=== PATIENT | male | born 1990 | race Two or more races ===

== ENCOUNTER 2021-08-24 15:49 | Outpatient (REF) | payer SELFPAY ==
[2021-08-26 10:25] LABS: COVID-19 RT-PCR UVMMC Result Negative (Negative)
== END 2021-08-24 15:50 | disposition home or self-care (01) ==
LOC: LBN 15:49
PROVIDERS: PCP Specialist/Technologist Athletic Trainer; Visit Provider Family Medicine
DX: Z20.822 Contact with and (suspected) exposure to COVID-19 (principal); J32.9 Chronic sinusitis, unspecified
CPT/HCPCS: U0003

== ENCOUNTER 2021-09-13 15:46 | Outpatient (REF) | payer SELFPAY ==
[2021-09-14 18:58] LABS: COVID-19 RT-PCR UVMMC Result Negative (Negative)
== END 2021-09-13 15:47 | disposition home or self-care (01) ==
LOC: NCHCN 15:46
PROVIDERS: PCP Specialist/Technologist Athletic Trainer; Visit Provider Nurse Practitioner Family
DX: Z20.822 Contact with and (suspected) exposure to COVID-19 (principal)
CPT/HCPCS: U0003

== ENCOUNTER 2022-05-22 16:02 | Outpatient (REF) | payer BC, SELFPAY ==
[2022-05-22 16:38] LABS: Anion Gap 10.6 mmol/L (3-11); BUN 15 mg/dL (7-18); CO2 23.4 mmol/L (21.0-32.0); CREATININE 0.9 mg/dL (0.70-1.30); Calcium 9.2 mg/dL (8.5-10.1); Chloride 106 mmol/L (98-107); Glucose 101 mg/dL (74-106); Potassium 4.2 mmol/L (3.5-5.1); Sodium 140 mmol/L (136-145)
[2022-05-22 16:43] LABS: Hemoglobin A1C 5.5 % (<5.7)
== END 2022-05-22 16:03 | disposition home or self-care (01) ==
LOC: NCHCN 16:02
PROVIDERS: PCP Specialist/Technologist Athletic Trainer; Visit Provider Nurse Practitioner Family
DX: Z00.00 Encounter for general adult medical examination without abnormal findings (principal)
CPT/HCPCS: 80048; 83036

== ENCOUNTER 2022-07-12 13:08 | Emergency (ER) | payer BC, SELFPAY ==
[2022-07-12 13:19] VITALS: BP 131/88; PULSE 75; RESP 18; TEMP 36.7; O2SAT 97
--- NOTE | 2022-07-12 13:54 | ED.GENADUL_ITS ---
Discharge Plan Disposition Patient Disposition: HOME Condition: Stable Discharge Details Clinical Impression: Acute otalgia, URI (upper respiratory infection) Primary Care Provider: Idalia Lamb ED Provider: Mitchel Nettles Home Meds and New Rx's Prescriptions: New amoxicillin 875 mg tablet 875 mg PO Q12H 7 Days Qty: 14 0RF Continued fexofenadine 60 mg tablet 60 mg PO DAILY Label Comments: 07/06/22- pt unsure of dose omeprazole 20 mg capsule,delayed release(DR/EC) 20 mg PO DAILY acetaminophen [Tylenol] 325 MG tablet 650 mg PO Q6H PRN PRN (Reason: Pain) Qty: 120 2RF Held ibuprofen 600 MG tablet 600 mg PO TID PRN PRN (Reason: Pain) Qty: 90 2RF Hold Instructions: As instructed by urology Discharge Instructions Instructions: Upper Respiratory Infection (ED), Earache (ED) Additional Instructions: At this time I feel that your ear pain is secondary to your upper respiratory tract infection. You may continue to use [id number] medications as discussed for discomfort and symptoms. You have been given a prescription for antibiotics but I recommend waiting for the least the next 24 to 48 hours to see if using acetaminophen resolve your symptoms as I am not convinced that this is a bacterial ear infection and again is more related to your viral infection. If you begin the antibiotics and you do not see any benefit in the next 48 hours or you have significant worsening of symptoms feel free to follow-up with your primary care provider or return to the emergency department. Referrals: Idalia Lamb [Primary Care Provider] - (As needed for reassessment if not improving) Discharge Data Discharge Date/Time-TO BE ENTERED AT DEPARTURE: 07/12/22 14:06 Medical Decision Making Patient presenting to the emergency department for chief complaint of left ear pain. Patient reports that 3 days ago he began having cold-like symptoms which were improved this morning but started having some left ear pain. Patient states it is more moderate in nature but due to having surgery on Sunday he wanted to be assessed before then. Patient denies fever chills, shortness of breath. He does state that he has tested negative for COVID and multiple other family members in the home with similar symptoms who have also all tested nega tive for COVID. Physical exam shows left TM that is bulging and partially erythematous but no purulence, and exam is otherwise unremarkable. I do feel that patient is stable enough to take [id number] analgesia for discomfort for the next 24 to 48 hours to see if this resolves symptoms prior to starting antibiotics given that patient just charted having ear pain this morning. Patient was agreeable to this plan of care but I did give patient pocket prescription for amoxicillin if patient has worsening symptoms. After discussion of diagnosis and plan of care patient has no further needs, questions, or concerns and states clear understanding to return to the emergency department for any worsening symptoms. This documentation was generated using [employer] dictation system, please disregard any oddities of phrase or misspellings. HPI General Mode of arrival: ambulatory . Date/Time Provider Initiated Documentation: 07/12/22 13:27 . Limitations to Documentation: no limitations . Information obtained by: patient . History of Present Illness 31 year old M presents to the emergency department with the chief complaint of Left earache, cold symptoms, described as moderate, with intensity rated at 5. Quality is described as aching, and is localized to the left (ear). Patient reports no radiation. Patient started experiencing this hour(s) (3) and it has been constant. No relieving factors improve symptom(s), No exacerbating factors reported . Patient did receive the following treatments prior to arrival, none Related Data Home Medications Medication Instructions Recorded Confirmed acetaminophen 325 mg tablet 650 mg PO Q6H PRN PRN Pain #120 10/25/17 07/12/22 (Tylenol) tabs ibuprofen 600 mg tablet 600 mg PO TID PRN PRN Pain #90 tabs 10/25/17 07/12/22 omeprazole 20 mg capsule,delayed 20 mg PO DAILY 06/20/22 07/12/22 release fexofenadine 60 mg tablet 60 mg PO DAILY 07/06/22 07/12/22 amoxicillin 875 mg tablet 875 mg PO Q12H 7 days #14 tabs 07/12/22 Previous Rx's Medication Instructions Recorded acetaminophen 325 mg tablet 650 mg PO Q6H PRN PRN Pain #120 10/25/17 (Tylenol) tabs ibuprofen 600 mg tablet 600 mg PO TID PRN PRN Pain #90 tabs 10/25/17 amoxicillin 875 mg tablet 875 mg PO Q12H 7 days #14 tabs 07/12/22 Allergies Allergy/AdvReac Type Severity Reaction Status Date / Time No Known Allergies Allergy Unverified 07/12/22 13:24 General Stated Complaint: EarProblem MICKEY: 5 Review of Systems Constitutional Constitutional: Denies chills, Denies fever(s), Denies headache(s) and Denies poor appetite ENT Ears, Nose, Mouth, and Throat: Reports as per HPI, Denies ear discharge, Reports otalgia, Denies facial pain, Denies headache(s), Reports nasal congestion, Reports nasal discharge, Denies neck pain and Denies sore throat Cardiovascular Cardiovascular: Denies chest pain and Denies dyspnea Respiratory Respiratory: Reports cough and Denies dyspnea Gastrointestinal Gastrointestinal: Denies abdominal pain, Denies diarrhea, Denies nausea and Denies vomiting Musculoskeletal Musculoskeletal: Denies neck pain Integumentary/Breasts Skin/Breast: Denies rash Neurologic Neurologic: Denies headache(s) PFSH All Active Problems Acute otalgia (Acute) URI (upper respiratory infection) (Acute) GERD (gastroesophageal reflux disease) (Chronic) Back pain (Acute) Tobacco abuse (Acute) Abdominal pain (Acute) Groin pain (Acute) Testicular pain (Acute) Sleep disturbance (Acute) Obesity (Chronic) Varicocele (Acute) Social History Smoking/Tobacco Use Status: Current every day Tobacco Type: cigarettes Smoking risk assessment performed?: Yes Alcohol Intake: current Alcohol Intake frequency: a few times a month Alcohol type: beer, wine and hard liquor Drug use: Occasionally Substance use type: marijuana Current gender identity: male Do you feel safe at home: Yes Do you feel safe in your relationship?: Yes Exam Const General: cooperative, comfortable and no acute distress Orientation: alert and awake [facility] Head: normal to inspection, normocephalic and atraumatic Ears: hearing grossly normal bilaterally, external ears normal, TM normal on the right, mastoids normal, no periauricular adenopathy and TM abnormal bulging on the left and erythematous on the left; not bullous, not dull and not with effusion General nose exam: external nose normal Face and sinus: no erythema Mouth: oral mucosae normal, no drooling, no muffled voice and no trismus Throat: posterior oropharynx normal Neck Neck: normal visual inspection, no lymphadenopathy, no meningeal signs, trachea midline and supple Resp Effort & Inspection: normal respiratory effort and able to speak in complete sentences Skin General skin exam: no rashes or lesions noted and dry skin (warm) Neuro General: patient alert, patient awake, patient oriented x3, gait normal and moves all extremities Cognition: normal cognition Speech: speech normal Course Vital Signs Vital signs: Vital Signs Temperature 36.7 C 07/12/22 13:19 Pulse 75 07/12/22 13:19 Respiratory Rate 18 07/12/22 13:19 Blood Pressure 131/88 07/12/22 13:19 Pulse Oximetry 97 07/12/22 13:19 Temperature 36.7 C 07/12/22 13:19 Temperature Source Temporal Artery Scan 07/12/22 13:19 Pulse 75 07/12/22 13:19 Respiratory Rate 18 07/12/22 13:19 Respiratory Effort Non-Labored 07/12/22 13:22 Blood Pressure 131/88 07/12/22 13:19 Blood Pressure Position Sitting 07/12/22 13:19 Pulse Oximetry 97 07/12/22 13:19 Oxygen Delivery Method Room Air 07/12/22 13:19 Oxygen Flow Rate 0 07/12/22 13:19 Pain Level 8 07/12/22 13:19 PAWSS Have you Been Recently Intoxicated or Drunk Within the Last 30 days?: No Have you Ever Experienced Previous Episodes of Alcohol Withdrawal?: No Have you ever Experienced Withdrawal Seizures?: No Have you ever Experienced Delirium Tremens(DT)s?: No Have you ever undergone Alcohol Rehabilitation Treatment (i.e, inpt ot outpatient treatment programs)?: No Have you ever Experienced Blackouts?: No Have you ever Combined Alcohol with other Downers within the last 90 days?: No Have you ever Combined Alcohol with any other Substance of Abuse during the last 90 days?: No Positive Blood Alcohol level on Presentation? [PCS.BAL]: No Evidence of Increased Autonomic Activity (i.e. HR>120, tremor, sweating, agitation, nausea)?: No Result: 0
== END 2022-07-12 14:06 | disposition home or self-care (01) ==
PROVIDERS: Emergency Provider Nurse Practitioner Family; PCP Nurse Practitioner Family
DX: J06.9 Acute upper respiratory infection, unspecified; F17.210 Nicotine dependence, cigarettes, uncomplicated
CPT/HCPCS: 99283; 99284

== ENCOUNTER 2022-07-31 07:02 | Day surgery (SDC) | payer BC, SELFPAY ==
[2022-07-31] VITALS (9 sets, daily range): BP systolic 113–139; BP diastolic 57–85; PULSE 68–87; RESP 10–33; TEMP 36.1–36.7; O2SAT 97–99; BMI 34.9
--- NOTE | 2022-07-31 06:14 | ANES.PREOP_ITS ---
General Info Date of Service Date Performed: 07/31/22 Height: 5 ft 8 in Weight: 104.326 kg Body Mass Index (BMI): 34.9 Surgical Procedure: Operation Date: 07/31/22 07:40 Proposed Procedure Side Surgeon p Varicocelectomy Left Raul Go MD s Vasectomy Bilateral Raul Go MD Meds Allergies and Home Medications Allergies Allergy/AdvReac Type Severity Reaction Status Date / Time No Known Allergies Allergy Unverified 07/28/22 12:31 Home Medication Medication Instructions Recorded acetaminophen 325 mg tablet 650 mg PO Q6H PRN PRN Pain #120 10/25/17 (Tylenol) tabs ibuprofen 600 mg tablet 600 mg PO TID PRN PRN Pain #90 tabs 10/25/17 omeprazole 20 mg capsule,delayed 20 mg PO DAILY 06/20/22 release fexofenadine 60 mg tablet 60 mg PO DAILY 07/06/22 Current Visit Medications: Current Medications Generic Name Dose Route Start Last Admin Trade Name Freq PRN Reason Stop Dose Admin Ringer's Solution 1,000 mls @ 80 mls/hr 07/31/22 06:00 IV 08/27/22 23:59 INFUSION CHRIS Cefazolin Sodium/Dextrose 2 gm in 50 mls @ 100 mls/hr 07/31/22 06:00 Ancef Duplex IVPB 07/31/22 16:00 PREOP CHRIS IV Miscellaneous Supplies 1 each 07/31/22 06:00 Iv Access IV 08/27/22 23:59 DIRECTED CHRIS Sodium Chloride 0 ml 07/31/22 06:00 Normal Saline Flush 10 Ml Syr IV 08/27/22 23:59 PRN PRN Sodium Chloride 0 ml 07/31/22 06:00 Normal Saline 10 Ml Vial IJ 08/27/22 23:59 DIRECTED PRN Sterile Water 0 ml 07/31/22 06:00 Water,Injection,Sterile 10 Ml Vial IJ 08/27/22 23:59 DIRECTED PRN PFSH Active Problems Active Problems: Problem Status Onset Code Acute otalgia H92.09 URI (upper respiratory infection) J06.9 GERD (gastroesophageal reflux disease) K21.9 Back pain M54.9 Tobacco abuse Z72.0 Abdominal pain R10.9 Groin pain R10.30 Testicular pain N50.819 Sleep disturbance G47.9 Obesity E66.9 Varicocele I86.1 Medical History Medical History (Updated 07/31/22 @ 07:29 by Raul Go MD) Hand fracture, left Surgical History Surgical History (Updated 07/31/22 @ 07:26 by Savana Rey RN) Hx of hernia repair Tobacco Smoking/Tobacco Use Status: Current every day Tobacco Type: cigarettes Alcohol Alcohol Intake: current Alcohol intake frequency: a few times a month Alcohol type: beer, wine and hard liquor Substance Use Substance use: Occasionally Substance use type: marijuana Vital Signs and Lab Results Vital Signs Most Recent Vital Signs in EMR: Temp Pulse Resp BP Pulse Ox 36.2 C L 87 16 127/79 97 07/31/22 07:17 07/31/22 07:17 07/31/22 07:17 07/31/22 07:17 07/31/22 07:17 Lab Results Blood Type / Crossmatch: No Data to Display Complete Blood Count: No Data to Display Complete Metabolic Panel: No Data to Display Liver Function Panel: No Data to Display Coagulation Panel: No Data to Display Cardiac Panel: No Data to Display Arterial Blood Gas: No Data to Display Venous Blood Gas: No Data to Display Pancreas Panel: No Data to Display Thyroid Panel: No Data to Display Infectious Disease: No Data to Display Blood Cultures: No Data to Display Toxicology Panel: No Data to Display Anesthesia Assessment and Plan Anesthesia History Personal History: No History of Anesthesia Complications Family History: No Family History of Anesthesia Complications Exercise Tolerance Exercise Tolerance: Metabolic Equivalents>4 Cardiac & Pulmonary Exam Cardiac Exam: Normal S1/S2 Heart Sounds Pulmonary Exam: Clear Bilateral Breath Sounds Implantable Cardiac Device Does patient have a Pacemaker or an ICD?: No Airway Exam Known Difficult Airway: No Mallampati Class: 3 Mouth Opening: Narrow (< 3cm) Thyromental Distance: Greater than 3 cm Neck Range of Motion: Full ROM Neck Circumference: Thick Teeth Condition: Normal Dentition ASA Classification ASA Score: ASA 2 Emergency Case?: No NPO Status NPO Status: NPO Clears >2 hours, Solids >8 hours Anesthesia Plan Resuscitation Status: Full Code Anesthesia Technique: General Anesthesia Airway Planned: LMA Monitors Used: Standard Monitors Preoperative Comments:: 31 yo male for left varicelectomy, and vasectomy. Sig PMHx: GERD (omeprazole, well controlled), smoker (daily tobacco, occ can nabis), occ EtOH, pna 2.5 weeks ago - doing well. Previous Anes: LMA 4, states that he remembers his finger being pined, anes record reviewed (eyes taped/LMA) - will use EEG monitor.
--- NOTE | 2022-07-31 07:19 | HPE_ITS ---
Date of service: 07/31/22 Time of Service: 07:19 Assessment and Plan Assessment and plan (1) Varicocele: Status: Acute (2) Testicular pain: Status: Acute (3) Encounter for vasectomy: Status: Acute Assessment and plan: We will plan a left varicocelectomy and bilateral vasectomy. We should be able to do the left sided vasectomy through our varicocelectomy incision. We will need a second scrotal opening for the right sided vasectomy. History of Present Illness History of Present Illness Chief Complaint: Left varicocele Narrative: This is a 31-year-old gentleman who is referred by his primary care providers at [facility]. Fritz has a history of an undescended left testis.? He underwent orchiopexy as a child. He comes in now with a 3-month history of left sided scrotal, groin and abdominal pain.? Pain first started when he was lifting a cinder block and felt a pop up in the abdominal area.? The abdominal discomfort improved in a few days with the use of ibuprofen, but the groin and scrotal discomfort has continued. The intensity of the discomfort varies from day-to-day.? The pain seems worse after his work shift is over and did end of the work week.? He does notice that his single alcoholic beverage helps improve the pain. He is not aware of any external skin changes of the scrotum or groin.? He has 2 children and is not interested in additional pregnancies.? In fact, he is interested in having a vasectomy. He has no voiding difficulties such as dysuria or gross hematuria. He has no family history of urologic malignancy. He is a smoker.? He tells me that he tends to require more anesthetic than expected. Review of Systems Narrative: No fevers or chills No vision change or dysphasia No diabetes or thyroid Had URI @ 2 weeks ago - no symptoms now. No shortness of breath, cough or hemoptysis No chest pain or palpitations Hx GERD. No nausea, vomiting, hepatitis, ulcers, jaundice No seizures, strokes or peripheral neuropathy No bleeding disorders or anemia No gout PFSH All Active Problems (Updated 07/31/22 @ 07:29 by Raul Go MD) Encounter for vasectomy (Acute) Varicocele (Acute) Obesity (Chronic) Sleep disturbance (Acute) Testicular pain (Acute) Groin pain (Acute) Abdominal pain (Acute) Tobacco abuse (Acute) Back pain (Acute) GERD (gastroesophageal reflux disease) (Chronic) Acute otalgia (Acute) URI (upper respiratory infection) (Acute) Medical History (Updated 07/31/22 @ 07:29 by Raul Go MD) Hand fracture, left Surgical History (Updated 07/31/22 @ 07:26 by Savana Rey RN) Hx of hernia repair Social History Smoking/Tobacco Use Status: Current every day Tobacco Type: cigarettes Smoking risk assessment performed?: Yes Alcohol Intake: current Alcohol Intake frequency: a few times a month Alcohol type: beer, wine and hard liquor Drug use: Occasionally Substance use type: marijuana Current gender identity: male Do you feel safe at home: Yes Do you feel safe in your relationship?: Yes Meds Allergies and Home Medications Allergies Allergy/AdvReac Type Severity Reaction Status Date / Time No Known Allergies Allergy Unverified 07/28/22 12:31 Home Medications Medication Instructions Recorded Confirmed Type acetaminophen 325 mg tablet 650 mg PO Q6H PRN PRN Pain #120 10/25/17 07/31/22 Rx (Tylenol) tabs ibuprofen 600 mg tablet 600 mg PO TID PRN PRN Pain #90 tabs 10/25/17 07/31/22 Rx omeprazole 20 mg capsule,delayed 20 mg PO DAILY 06/20/22 07/31/22 History release fexofenadine 60 mg tablet 60 mg PO DAILY 07/06/22 07/31/22 History Exam Const General: cooperative Neck Neck: supple Resp Effort & Inspection: normal respiratory effort Auscultation: clear to auscultation bilaterally Cardio Rate: regular rate Rhythm: regular rhythm GI Inspection: normal to inspection Palpation: soft Neuro General: patient alert, patient awake and patient oriented x3
[2022-07-31] MEDS: Lactated Ringers 1,000 ML 80 ML IV (07:50)
[2022-07-31] MEDS: ceFAZolin 2 GM/50 ML BAG IVPB (07:58)
[2022-07-31] MEDS: Bupivacaine 0.25% Pres-Free 30 ML VIAL (08:24)
--- NOTE | 2022-07-31 09:16 | W.PM.DSUDISC ---
Discharge Plan Disposition Patient Disposition: HOME Condition: Good Discharge Details Reason For Visit: vasectomy Attending Provider: Raul Go Primary Care Provider: Idalia Lamb Home Meds and New Rx's Prescriptions: New ketorolac 10 mg tablet 10 mg PO TID PRN (Reason: pain) 5 Days Qty: 15 0RF Rx Instructions: may take with tylenol but do not take NSAIDS such as Ibuprofen No Action fexofenadine 60 mg tablet 60 mg PO DAILY Label Comments: 07/06/22- pt unsure of dose omeprazole 20 mg capsule,delayed release(DR/EC) 20 mg PO DAILY acetaminophen [Tylenol] 325 MG tablet 650 mg PO Q6H PRN PRN (Reason: Pain) Qty: 120 2RF ibuprofen 600 MG tablet 600 mg PO TID PRN PRN (Reason: Pain) Qty: 90 2RF Hold Instructions: As instructed by urology Discharge Instructions Additional Instructions: no lifting over 10 pounds for 2 weeks followup appt in my office 1 to 2 weeks OK to shower ice pack to scrotum (bag of frozen peas works well) for 48 hours Activity:: no lifting over 10 pounds Remove Dressings/Wound Care:: 24 hours Shower/Bathe:: 24 hours Diet:: As Tolerated Discharge Orders Discharge Orders: Discharge Order (Routine); Ordered 07/31/22 Ordered By: Raul Go DS: Diagnosis Discharge Diagnosis (1) Varicocele: Status: Acute (2) Testicular pain: Status: Acute (3) Encounter for vasectomy: Status: Acute
--- NOTE | 2022-07-31 09:24 | ROE_ITS ---
Date of service: 07/31/22 Time of Service: 09:24 Operative Note Operative Note DATE OF PROCEDURE: 07/31/22 PRE-OP DIAGNOSIS: 1. Left varicocele 2. Elective sterilization POST-OP DIAGNOSIS: same PROCEDURE: 1. Left varicocele 2. Bilateral vasectomy SURGEON: Raul Go ANESTHESIA TYPE: Local By Surgeon and General LMA/ETT Refer to Anesthesia Record ESTIMATED BLOOD LOSS: 20 PATHOLOGY: none sent COMPLICATIONS: None Patient was transported to: PACU Patient's condition: stable Implants: none Indications: This is a 31-year-old gentleman who has a history of left scrotal and groin discomfort. On evaluation, he has a palpable left varicocele which seems to be the source of his pain. He presents for varicocelectomy. He is also interested in having a vasectomy. He and his partner not interested in additional pregnancies. He has consented for vasectomy at the same procedure Findings: Varicocele Procedure Description: Patient was brought to the operating room on 07/31/2022. After successful i nduction of general anesthesia, he was placed in the supine position. He was given a dose of preoperative IV antibiotics. The patient's lower abdomen and genitalia were then prepped and draped steri elizabeth. We made a left inguinal incision and extended the incision down until the aponeurosis of the external oblique was identified. The external oblique was opened in the direction of its fibers and the spermatic cord was then identified. The cord was isolated and a Camryn drain was placed around the cord. A rather large lipoma of the cord was identified. The lipoma was dissected free using sharp and blunt dissection. The lipoma was removed. We were then able to skeletonize the cord and visualize multiple distended veins. Each of these veins was isolated using a right angle and divided between 2-0 silk ties. Once all veins were addressed, we isolated the vas deferens. We dissected the vas free from its surrounding tissues and excised a 2 cm section of vas. Each of the cut ends were then cauterized using a Bovie. The cord was replaced back beneath the external oblique aponeurosis. The aponeurosis was reapproximated using [id number] 2-0 Vicryl sutures. The subcutaneous tissue was reapproximated using 3-0 Vicryl. The skin was closed with a subcuticular 4-0 Vicryl suture. We then addressed the right vas deferens through a scrotal approach. The vas was isolated up against the scrotal skin. The skin was opened using a scalpel free technique. The vas was then grasped in a ring forceps and dissected free from its surrounding tissue. A 2 cm section of vas was excised. Each cut end of the vas deferens was then cauterized and the more proximal end of the vas was buried back beneath the adventitia using simple interrupted 3-0 chromic suture. Once hemostasis had been assured, the skin was closed with Dermabond. The patient tolerated this procedure well with no complications.
[2022-07-31] MEDS: HYDROmorphone 2 MG/ML SYR IVP (10:13)
[2022-07-31] MEDS: Normal Saline 10 ML VIAL IJ (10:13)
--- NOTE | 2022-07-31 10:43 | W.ANESPOSTOP ---
Postoperative Evaluation Date, Time and Location Date Performed: 07/31/22 Time Performed: 10:15 Patient Location: PACU Vital Signs Most Recent Imported Vital Signs: Most Recent Vital Signs Temp Pulse Resp BP Pulse Ox 36.4 C L 73 10 L 128/85 98 07/31/22 10:20 07/31/22 10:20 07/31/22 10:20 07/31/22 10:20 07/31/22 10:20 Pain Score Most Recent Pain Score: Most Recent Pain Score Pain Level 5 07/31/22 10:20 Assessment Mental Status: Awake (Alert & Oriented to Patient Baseline) Airway and Respiratory Function: Patent airway with normal (patient baseline) respiratory exam Cardiovascular Function: Hemodynamically Stable Hydration Status: Adequately Hydrated Nausea & Vomiting: No Nausea or Vomiting Pain: Pain is tolerable per patient Peripheral Nerve Block: Patient did not receive a nerve block
== END 2022-07-31 11:43 | disposition home or self-care (01) ==
PROVIDERS: PCP Nurse Practitioner Family; Visit Provider Urology
PROC: (CPT 55530; principal; 2022-07-31 07:30)
PROC: (CPT 55250; 2022-07-31 07:30)
DX: Z30.2 Encounter for sterilization (principal); I86.1 Scrotal varices; D17.6 Benign lipomatous neoplasm of spermatic cord; N50.819 Testicular pain, unspecified
CPT/HCPCS: 55530; 55520; 55250; J0131; J0690; J1100; J1170; J1885; J2405; J2704

== ENCOUNTER 2022-08-04 08:12 | Emergency (ER) | payer BC, SELFPAY ==
[2022-08-04 08:20] VITALS: BP 134/79; PULSE 117; RESP 18; TEMP 36.3; O2SAT 98
--- NOTE | 2022-08-04 08:45 | DI.RAD_ITS ---
Exam(s) XR ABDOMEN FLAT UPRIGHT EXAM: XR ABDOMEN FLAT UPRIGHT CLINICAL HISTORY: s/p sugery, no bm. TECHNIQUE: 2D digital imaging was performed. COMPARISON: CR ABD FLAT UPRIGHT PA CHEST from 11/23/2010 FINDINGS: 3 views Bowel gas pattern is nonspecific. There are air-filled nondilated small bowel loops as well as some air in the colon. There is no bowel obstruction or free air. There are 2 similar appearing calcific densities in the lower left pelvis which are possibly renal calculi but have more the appearance of undigested pills. There are no obvious calcifications over the kidneys nor along course of the upper -mid ureters. Visualized lung bases are clear. IMPRESSION: No bowel obstruction or free air. Two calcific densities in the pelvis as described above. These measure approximately 10 x 5 millimet ers. Although these may represent calculi in the left ureter/bladder, the appearance is more of undi gested pills. Correlation history recommended. DATA REPOSITORY: RADIATION DOSE DELIVERED:
[2022-08-04 09:16] VITALS: RESP 20
--- NOTE | 2022-08-04 10:13 | ED.GENADUL_ITS ---
Discharge Plan Disposition Patient Disposition: HOME Condition: Stable Discharge Details Clinical Impression: Abdominal pain Primary Care Provider: Idalia Lamb ED Provider: Hayley Betts Home Meds and New Rx's Prescriptions: Continued fexofenadine 60 mg tablet 60 mg PO DAILY Label Comments: 07/06/22- pt unsure of dose omeprazole 20 mg capsule,delayed release(DR/EC) 20 mg PO DAILY acetaminophen [Tylenol] 325 MG tablet 650 mg PO Q6H PRN PRN (Reason: Pain) Qty: 120 2RF ibuprofen 600 MG tablet 600 mg PO TID PRN PRN (Reason: Pain) Qty: 90 2RF Hold Instructions: As instructed by urology Discharge Instructions Instructions: Abdominal Pain (ED) Additional Instructions: Take MiraLAX or Colace daily for the next week Follow-up with Dr. Go Return earlier should you have new or worsening complaints Referrals: Idalia Lamb [Primary Care Provider] - Discharge Data Discharge Date/Time-TO BE ENTERED AT DEPARTURE: 08/04/22 10:31 Medical Decision Making Patient reports resolution of pain after receiving, he is requesting discharge home, be placed on MiraLAX or Colace at the patient's discretion Return precautions discussed and patient expressed understanding, discharged home in stable condition with stable vitals HPI General Date/Time Provider Initiated Documentation: 08/04/22 08:16 . HPI Narrative: This 31-year-old male presents status post varicocelectomy and vasectomy performed on Sunday. Presents secondary to rectal pain in the presence of likely constipation per patient. States he has not had a bowel movement in the past 3 days. States that she does not have surgery Related Data Home Medications Medication Instructions Recorded Confirmed acetaminophen 325 mg tablet 650 mg PO Q6H PRN PRN Pain #120 10/25/17 07/31/22 (Tylenol) tabs ibuprofen 600 mg tablet 600 mg PO TID PRN PRN Pain #90 tabs 10/25/17 07/31/22 omeprazole 20 mg capsule,delayed 20 mg PO DAILY 06/20/22 07/31/22 release fexofenadine 60 mg tablet 60 mg PO DAILY 07/06/22 07/31/22 Previous Rx's Medication Instructions Recorded acetaminophen 325 mg tablet 650 mg PO Q6H PRN PRN Pain #120 10/25/17 (Tylenol) tabs ibuprofen 600 mg tablet 600 mg PO TID PRN PRN Pain #90 tabs 10/25/17 Allergies Allergy/AdvReac Type Severity Reaction Status Date / Time No Known Allergies Allergy Unverified 07/28/22 12:31 General Stated Complaint: GenMedical MICKEY: 3 Review of Systems All systems reviewed & are unremarkable except as noted in HPI and below PFSH All Active Problems (Updated 08/04/22 @ 10:17 by WILVER Laughlin) Abdominal pain (Acute) Encounter for vasectomy (Acute) Varicocele (Acute) Obesity (Chronic) Sleep disturbance (Acute) Testicular pain (Acute) Groin pain (Acute) Abdominal pain (Acute) Tobacco abuse (Acute) Back pain (Acute) GERD (gastroesophageal reflux disease) (Chronic) Acute otalgia (Acute) URI (upper respiratory infection) (Acute) Medical History (Updated 08/04/22 @ 10:17 by WILVER Laughlin) Hand fracture, left Surgical History (Updated 07/31/22 @ 07:26 by Savana Rey RN) Hx of hernia repair Social History Smoking/Tobacco Use Status: Current every day Tobacco Type: cigarettes Smoking risk assessment performed?: Yes Alcohol Intake: current Alcohol Intake frequency: a few times a month Alcohol type: beer, wine and hard liquor Drug use: Occasionally Substance use type: marijuana Current gender identity: male Do you feel safe at home: Yes Do you feel safe in your relationship?: Yes Exam Const General: cooperative and comfortable Eyes Sclera: sclerae normal Resp Effort & Inspection: normal respiratory effort Auscultation: clear to auscultation bilaterally Cardio Rate: regular rate GI Inspection: normal to inspection Other: no stool in rectal vault Skin General skin exam: no rashes or lesions noted Neuro General: patient alert and patient oriented x3 Course Vital Signs Vital signs: Vital Signs Temperature 36.3 C L 08/04/22 08:20 Pulse 117 H 08/04/22 08:20 Respiratory Rate 18 08/04/22 08:20 Blood Pressure 134/79 08/04/22 08:20 Pulse Oximetry 98 08/04/22 08:20 Temperature 36.3 C L 08/04/22 08:20 Temperature Source Temporal Artery Scan 08/04/22 08:20 Pulse 117 H 08/04/22 08:20 Respiratory Rate 20 08/04/22 09:16 Respiratory Effort Non-Labored 08/04/22 09:16 Respiratory Depth Normal 08/04/22 09:16 Respiratory Pattern Normal 08/04/22 09:16 Blood Pressure 134/79 08/04/22 08:20 Blood Pressure Position Sitting 08/04/22 08:20 Pulse Oximetry 98 08/04/22 08:20 Oxygen Delivery Method Room Air 08/04/22 08:20 Oxygen Flow Rate 0 08/04/22 08:20 Pain Level 9 08/04/22 08:30 PAWSS Have you Been Recently Intoxicated or Drunk Within the Last 30 days?: No Have you Ever Experienced Previous Episodes of Alcohol Withdrawal?: No Have you ever Experienced Withdrawal Seizures?: No Have you ever Experienced Delirium Tremens(DT)s?: No Have you ever undergone Alcohol Rehabilitation Treatment (i.e, inpt ot outpatient treatment programs)?: No Have you ever Experienced Blackouts?: No Have you ever Combined Alcohol with other Downers within the last 90 days?: No Have you ever Combined Alcohol with any other Substance of Abuse during the last 90 days?: No Positive Blood Alcohol level on Presentation? [PCS.BAL]: No Evidence of Increased Autonomic Activity (i.e. HR>120, tremor, sweating, agitation, nausea)?: No Result: 0
[2022-08-04 10:32] VITALS: BP 131/87; PULSE 109; RESP 16; O2SAT 97
== END 2022-08-04 10:31 | disposition home or self-care (01) ==
PROVIDERS: Emergency Provider Physician Assistant; PCP Nurse Practitioner Family
DX: R10.9 Unspecified abdominal pain (principal)
CPT/HCPCS: 99283; 74019; 99282

== ENCOUNTER 2023-10-26 23:48 | Emergency (ER) | payer BC, SELFPAY ==
[2023-10-26 23:55] VITALS: BP 145/93; PULSE 133; RESP 18; TEMP 36.9; O2SAT 95
[2023-10-27 00:02] VITALS: BP 145/93; PULSE 133; RESP 18; TEMP 36.9; O2SAT 95
--- NOTE | 2023-10-27 00:07 | ED.GENADUL_ITS ---
Discharge Plan Disposition Patient Disposition: Home Condition: Good Discharge Details Clinical Impression: Left lower lobe pneumonia Primary Care Provider: Idalia Lamb ED Provider: Melvin Harmon Home Meds and New Rx's Prescriptions: New benzonatate 100 mg capsule 100 mg PO TID Qty: 30 0RF doxycycline hyclate 100 mg tablet 100 mg PO BID Qty: 20 0RF No Action fexofenadine 60 mg tablet 60 mg PO DAILY Patient Comments: 07/06/22- pt unsure of dose omeprazole 20 mg capsule,delayed release(DR/EC) 20 mg PO DAILY acetaminophen [Tylenol] 325 MG tablet 650 mg PO Q6H PRN PRN (Reason: Pain) Qty: 120 2RF ibuprofen 600 MG tablet 600 mg PO TID PRN PRN (Reason: Pain) Qty: 90 2RF Hold Instructions: As instructed by urology Discharge Instructions Instructions: Pneumonia (ED) Additional Instructions: At this time you have evidence of left lower lobe pneumonia. Please take the antibiotic doxycycline as prescribed. A prescription has been sent to your pharmacy. Please avoid any significant dairy products or calcium supplements while on this medication as they can bind to the medication and make it less effective. Please make sure to take the medication with food otherwise it can cause nausea and notable vomiting. Please take the Symbicort inhaler, 2 puffs every 12 hours while you are on the antibiotic. Please take the benzonatate to help with the cough. If you notice any worsening of your symptoms, or any new symptoms such as vomiting, diarrhea, fever, chills, shortness of breath, chest pain, numbness, weakness, or fainting , please return immediately to the emergency department for reevaluation. Please follow up with your primary care provider as soon as possible for reassessment and reevaluation. As always, it was a pleasure participating in your medical care today. Referrals: Idalia Lamb [Primary Care Provider] - Medical Decision Making 32-year-old male with a past medical history of GERD, tobacco abuse, presents today for evaluation of cough. Patient states that it has been present for the last 3 weeks. It started with a mild upper respiratory symptoms, and then continued. He states that he has been coughing so hard that occasionally he will have an episode of vomiting. He states he feels slightly tired and fatigued and achy, but otherwise feels fine and functional. He denies any headache or neck pain. He denies any chest pain. He denies any hemoptysis. Minimal yellow productive sputum. He denies numbness tingling or weakness. No other complaints at this time. No other modifying factors. No history of blood clots. No recent long trips surgeries or procedures. Exam demonstrates relatively well-appearing male, he is cheerful and interactive. No evidence of lethargy. Mild tachycardia. No murmur. No hypotension. Lung sounds are slightly diminished, no iris crackles. Bedside ultrasound was performed and shows evidence of consolidation and B-lines in the left lower lung warren. Questionable atelectasis in the right lateral lung field. Concern for pneumonia. Symptoms and history appear inconsistent with PE or myocarditis. With evidence of pneumonia, I do feel that this is the current cause of his persistent cough. Patient's oxygenation is stable. Do recommend smoking cessation. I do feel that the patient would benefit from antibacterial treatment. Will give a prescription for doxycycline and a small bottle here to go. Will give a Symbicort inhaler for home use as well, 2 puffs every 12 hours. Will give Tessalon Perles for home use. We did offer IV fluids for rehydration as he does have dry mucous membranes and mild to moderate tachycardia. Patient has declined IV fluids at this time. He states that he will go home and continue to hydrate well. Patient otherwise appears stable. He will be discharged home with a prescription for doxycycline Symbicort and Tessalon Perles. Discussed red flags for which to return. I have extensively reviewed the treatment plan and discharge instructions with the patient. I have addressed all patient concerns at this time. The patient was made aware of what symptoms to monitor for that would warrant a return to the emergency department. Discussed the plan with the patient, they demonstrate verbal understanding and agreement with our assessment and plan at this time. The documentation in this chart was dictated using [employer] dictation software. Please excuse any dictation errors. HPI General Date/Time Provider Initiated Documentation: 10/26/23 23:51 . HPI Narrative: 32-year-old male with a past medical history of GERD, tobacco abuse, presents today for evaluation of cough. Patient states that it has been present for the last 3 weeks. It started with a mild upper respiratory symptoms, and then continued. He states that he has been coughing so hard that occasionally he will have an episode of vomiting. He states he feels slightly tired and fatigued and achy, but otherwise feels fine and functional. He denies any headache or neck pain. He denies any chest pain. He denies any hemoptysis. Minimal yellow productive sputum. He denies numbness tingling or weakness. No other complaints at this time. No other modifying factors. No history of blood clots. No recent long trips surgeries or procedures. Related Data Home Medications Medication Instructions Recorded Confirmed acetaminophen 325 mg tablet 650 mg (2 x 325 mg) PO Q6H PRN PRN 10/25/17 04/04/23 (Tylenol) Pain #120 tabs ibuprofen 600 mg tablet 600 mg PO TID PRN PRN Pain #90 tabs 10/25/17 04/04/23 omeprazole 20 mg capsule,delayed 20 mg PO DAILY 06/20/22 04/04/23 release fexofenadine 60 mg tablet 60 mg PO DAILY 07/06/22 04/04/23 benzonatate 100 mg capsule 100 mg PO TID #30 caps 10/27/23 doxycycline hyclate 100 mg tablet 100 mg PO BID #20 tabs 10/27/23 Previous Rx's Medication Instructions Recorded acetaminophen 325 mg tablet 650 mg (2 x 325 mg) PO Q6H PRN PRN 10/25/17 (Tylenol) Pain #120 tabs ibuprofen 600 mg tablet 600 mg PO TID PRN PRN Pain #90 tabs 10/25/17 benzonatate 100 mg capsule 100 mg PO TID #30 caps 10/27/23 doxycycline hyclate 100 mg tablet 100 mg PO BID #20 tabs 10/27/23 Allergies Allergy/AdvReac Type Severity Reaction Status Date / Time No Known Allergies Allergy Unverified 04/02/23 11:04 General Stated Complaint: RespSymp MICKEY: 3 Review of Systems All systems reviewed & are unremarkable except as noted in HPI and below PFSH All Active Problems Left lower lobe pneumonia (Acute) Encounter for vasectomy (Acute) Varicocele (Acute) Obesity (Chronic) Sleep disturbance (Acute) Testicular pain (Acute) Groin pain (Acute) Abdominal pain (Acute) Tobacco abuse (Acute) Back pain (Acute) GERD (gastroesophageal reflux disease) (Chronic) Medical History Hand fracture, left Surgical History Hx of hernia repair Social History Smoking/Tobacco Use Status: Current every day Tobacco Type: cigarettes Smoking risk assessment performed?: Yes Alcohol Intake: current Alcohol Intake frequency: a few times a month Alcohol type: beer, wine and hard liquor Drug use: Occasionally Substance use type: marijuana Current gender identity: male Do you feel safe at home: Yes Do you feel safe in your relationship?: Yes Exam Narrative Exam Narrative: 1.Const: Well-nourished, Well-developed, appearing stated age 2.Eyes: PERRL, no conjunctival injection, and symmetrical lids. 3.ENT: Atraumatic external nose and ears. Dry MM. Neck: Symmetric, trachea midline, No thyromegaly. 4.CVS: +S1/S2, No murmurs or gallops. Peripheral pulses 2+ and equal in all extremities. Brisk capillary refill in all extremities. 5.RESP: Slightly diminished breath sounds. No significant wheezes rales or rhonchi. 6.GI: Soft, Nontender/Nondistended, No hepatosplenomegaly. No guarding or rebound. 7.MSK: Normocephalic/Atraumatic, Extremities w/o deformity or ttp No cyanosis or clubbing, Normal movement of all extremities 8.Skin: Warm, Dry. No rashes or lesions. 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 Sensation grossly intact, no focal neurologic deficits. 10.Psych: (AAO) x3. Appropriate mood and affect Course Vital Signs Vital signs: Vital Signs Temperature 36.9 C 10/26/23 23:55 Pulse 133 H 10/26/23 23:55 Respiratory Rate 18 10/26/23 23:55 Blood Pressure 145/93 H 10/26/23 23:55 Pulse Oximetry 95 10/26/23 23:55 Temperature 36.9 C 10/27/23 00:02 Temperature Source Temporal Artery Scan 10/27/23 00:02 Pulse 133 H 10/27/23 00:02 Respiratory Rate 18 10/27/23 00:02 Respiratory Effort Normal, Non-Labored 10/27/23 00:00 Respiratory Depth Normal 10/27/23 00:00 Blood Pressure 145/93 H 10/27/23 00:02 Blood Pressure Position Sitting 10/27/23 00:02 Pulse Oximetry 95 10/27/23 00:02 Oxygen Delivery Method Room Air 10/27/23 00:02 Oxygen Flow Rate 0 10/26/23 23:55 Pain Level 0 10/27/23 00:02 POCUS Exam (ED) Limited Thoracic Lung Exam DATE OF EXAM: 10/27/23 TIME OF EXAM: 00:22 PROVIDER THAT PERFORMED THE STUDY: Melvin Harmon IS THIS A REPEAT EXAM DURING THIS ENCOUNTER: No REASON FOR EXAM: Pneumonia VISUALIZED STRUCTURES: right lateral, left lateral, right posterior and left posterior PERTINENT FINDINGS/IMPRESSION: B-lines/left side and Pneumonia Exam complete
[2023-10-27] MEDS: Doxycycline Hyclate 100 MG, 2 CAPS/BTL PO (00:15)
[2023-10-27] MEDS: Budesonide/Formoterol 160/4.5 6 GM 60 PUFF INH IH (00:31)
== END 2023-10-27 00:25 | disposition home or self-care (01) ==
LOC: ER 10-27 00:42
PROVIDERS: Emergency Provider Student in an Organized Health Care Education/Training Program; PCP Nurse Practitioner Family
DX: J18.9 Pneumonia, unspecified organism (principal); R50.9 Fever, unspecified; R07.0 Pain in throat
CPT/HCPCS: 76604; 99283

== ENCOUNTER 2023-10-28 22:49 | Emergency (ER) | payer BC, SELFPAY ==
[2023-10-28] VITALS (14 sets, daily range): BP systolic 86–147; BP diastolic 53–86; PULSE 94–107; RESP 12–30; TEMP 37.2; O2SAT 94–97
--- NOTE | 2023-10-28 23:00 | DI.RAD_ITS ---
Exam(s) XR PORTABLE CHEST AP EXAM: XR PORTABLE CHEST AP CLINICAL HISTORY: cough, r/o pneumonia TECHNIQUE: 2D digital imaging was performed. COMPARISON: CR CHEST 2 VIEWS PA,LAT from 08/07/2017 FINDINGS: LUNGS: Clear. No pleural abnormality seen. HEART: Normal size. AORTA: Normal diameter. BONES: Unremarkable for age. Soft tissues: Unremarkable. IMPRESSION: No acute findings. DATA REPOSITORY: RADIATION DOSE DELIVERED:
[2023-10-28] MEDS: Normal Saline 1,000 ML 1000 ML IV (23:26)
[2023-10-28 23:38] LABS: Abs Immature Grans 0.03 10^3/uL (0.0-0.06); Absolute Basophil Count 0.03 10^3/uL (0.0-0.2); Absolute Monocyte Count 1.29 10^3/uL (0.1-0.8); Absolute Neutrophil Count 8.47 10^3/uL (1.2-6.7); Basophils % 0.3; HCT 42.7 % (40.0-50.0); HGB 14.9 g/dL (13.5-17.5); Immature Grans % 0.3; Lymphocytes % 10.6; MCH 32.1 pg (27.0-33.0); MCHC 34.9 % (32.0-36.0); MCV 92 fL (80-95); MPV 9.4 fL (8.0-11.0); Monocytes % 11.7; Neutrophils % 77.1; Platelet Count 194 10^3/uL (130-400); RBC 4.64 10^6/uL (4.36-5.78); RDW 12.6 % (11.8-14.1); RDW-SD 42.7 fL; WBC 10.99 10^3/uL (4.4-10.8)
[2023-10-28 23:39] LABS: Absolute Lymphocyte Count 1.16 10^3/uL (1.2-3.4); BE (Venous) -3 mmol/L (-2-3); HCO3 (Venous) 21 mmol/L (23-28); O2 Sat (Venous) 82 %; TCO2 (Venous) 19 mmol/L (24-29); pCO2 (Venous) 31 mmHg (41-51); pH (Venous) 7.44 (7.31-7.41); pO2 (Venous) 42 mmHg
[2023-10-28 23:55] LABS: ALT 22 U/L (16-63); AST 17 U/L (15-37); Albumin 3.5 g/dL (3.4-5.0); Alkaline Phosphatase 55 U/L (46-116); Anion Gap 11.1 mmol/L (3-11); BUN 11 mg/dL (7-18); Bilirubin, Total 0.8 mg/dL (0.2-1.0); CO2 23.9 mmol/L (21.0-32.0); Calcium 8.3 mg/dL (8.5-10.1); Chloride 102 mmol/L (98-107); Estimated GFR 103.19 (mL/min/1.73m2); Glucose 123 mg/dL (74-106); Potassium 3.6 mmol/L (3.5-5.1); Sodium 137 mmol/L (136-145); Total Protein 7.7 g/dL (6.4-8.2)
--- NOTE | 2023-10-28 23:55 | DI.VRAD_ITS ---
PROCEDURE INFORMATION: Exam: XR Chest Exam date and time: 10/28/2023 11:36 PM Age: 32 years old Clinical indication: Patient HX: Cough. R/O pneumonia TECHNIQUE: Imaging protocol: Radiologic exam of the chest. Views: 1 view. Total images: 1 COMPARISON: CR CHEST 2 VIEWS PA,LAT 08/07/2017 8:40 AM FINDINGS: Lungs: Lungs appear clear. No visible consolidation. No pulmonary masses. Pulmonary vascularity is normal. Pleural spaces: No pleural effusion or pneumothorax. Heart/Mediastinum: Heart size is normal. Bones/joints: No acute osseous abnormalities. IMPRESSION: No acute cardiopulmonary disease. Dictated and Authenticated by: Jael Chairez MD. Ordering:BRAEDEN Charles MD
[2023-10-29] VITALS: PULSE 95; RESP 18; O2SAT 97
[2023-10-29] LABS: Troponin I < 50 ng/L (<or=60)
[2023-10-29 00:01] VITALS: BP 113/58; PULSE 94; PULSE 95; RESP 17; O2SAT 96
[2023-10-29 00:10] VITALS: PULSE 93; RESP 22; O2SAT 97
--- NOTE | 2023-10-29 00:13 | ED.GENADUL_ITS ---
Discharge Plan Disposition Patient Disposition: Home Condition: Good Discharge Details Clinical Impression: Pneumonia, Dehydration Primary Care Provider: Idalia Lamb ED Provider: Melvin Harmon Home Meds and New Rx's Prescriptions: No Action fexofenadine 60 mg tablet 60 mg PO DAILY Patient Comments: 07/06/22- pt unsure of dose omeprazole 20 mg capsule,delayed release(DR/EC) 20 mg PO DAILY benzonatate 100 mg capsule 100 mg PO TID Qty: 30 0RF doxycycline hyclate 100 mg tablet 100 mg PO BID Qty: 20 0RF acetaminophen [Tylenol] 325 MG tablet 650 mg PO Q6H PRN PRN (Reason: Pain) Qty: 120 2RF ibuprofen 600 MG tablet 600 mg PO TID PRN PRN (Reason: Pain) Qty: 90 2RF Hold Instructions: As instructed by urology Discharge Instructions Instructions: Dehydration (ED), Pneumonia (ED) Additional Instructions: At this time your pneumonia has improved on your chest x-ray. You have been rehydrated with 1500 mL. Please continue to drink plenty of fluids at home. Please rest. Please continue to take the antibiotic as directed. If you notice any worsening of your symptoms, or any new symptoms such as vomiting, diarrhea, fever, chills, shortness of breath, chest pain, numbness, weakness, or fainting , please return immediately to the emergency department for reevaluation. Please follow up with your primary care provider as soon as possible for reassessment and reevaluation. As always, it was a pleasure participating in your medical care today. Referrals: Idalia Lamb [Primary Care Provider] - Medical Decision Making 32-year-old male presents today for lightheadedness. Patient was seen and assessed here 2 days ago, bedside ultrasound at that time showed evidence of mild left-sided consolidation and pneumonia. At that time he did appear mildly dehydrated, and had mild tachycardia. He was offered IV fluids at that time, bu t declined. He was started on doxycycline and discharged home. Since then his cough has been improving while on the antibiotic. He denies any shortness of breath or significant chest pain. However he has gotten slightly lightheaded. He states that initially he was doing well to keep up with the fluids however over the last 24 hours he has not drunk much at all. He felt slightly weak and lightheaded throughout the day, called the ambulance this evening and was brought in for further assessment. EMS did notice mild tachycardia. No hypoxemia. He was given 250 cc bolus of normal saline and brought in. Patient denies any other complaints at this time. Denies any fever or chills. Denies any vomiting or diarrhea. Exam demonstrates mild dry mucous membranes, clear lung sounds good oxygenation. Patient states that he already feels better after the 250 cc bolus from EMS. Will get an x-ray to evaluate for worsening pneumonia, rehydrate with an additional liter of normal saline get a laboratory workup. We will monitor closely and reassess. Symptoms appear clinically consistent at this time with dehydration. Symptoms appear inconsistent with PE, dissection, or ACS. 12:30 AM Laboratory workup has returned, EKG benign, rhythm shows no evidence of STEMI or interval abnormality. COVID flu and RSV are negative, troponin normal, no significant white count. Renal function stable. Chest x-ray negative for significant process. On reassessment after fluids the patient feels much better. Heart rate has normalized. He feels well and would like to go home. Discussed red flags for which to return. I have extensively reviewed the treatment plan and discharge instructions with the patient. I have addressed all patient concerns at this time. The patient was made aware of what symptoms to monitor for that would warrant a return to the emergency department. Discussed the plan with the patient, they demonstrate verbal understanding and agreement with our assessment and plan at this time. The documentation in this chart was dictated using sMedio dictation software. Please excuse any dictation errors. FINDINGS: Lungs: Lungs appear clear. No visible consolidation. No pulmonary masses. Pulmonary vascularity is normal. Pleural spaces: No pleural effusion or pneumothorax. Heart/Mediastinum: Heart size is normal. Bones/joints: No acute osseous abnormalities. IMPRESSION: No acute cardiopulmonary disease. Thank you for allowing us to participate in the care of your patient. Dictated and Authenticated by: Jael Chairez MD 10/28/2023 11:55 PM Eastern Time ([place] & [place]) HPI General Date/Time Provider Initiated Documentation: 10/28/23 23:01 . HPI Narrative: 32-year-old male presents today for lightheadedness. Patient was seen and assessed here 2 days ago, bedside ultrasound at that time showed evidence of mild left-sided consolidation and pneumonia. At that time he did appear mildly dehydrated, and had mild tachycardia. He was offered IV fluids at that time, but declined. He was started on doxycycline and discharged home. Since then his cough has been improving while on the antibiotic. He denies any shortness of breath or significant chest pain. However he has gotten slightly lightheaded. He states that initially he was doing well to keep up with the fluids however over the last 24 hours he has not drunk much at all. He felt slightly weak and lightheaded throughout the day, called the ambulance this evening and was brought in for further assessment. EMS did notice mild tachycardia. No hypoxemia. He was given 250 cc bolus of normal saline and brought in. Patient denies any other complaints at this time. Denies any fever or chills. Denies any vomiting or diarrhea. Related Data Home Medications Medication Instructions Recorded Confirmed acetaminophen 325 mg tablet 650 mg (2 x 325 mg) PO Q6H PRN PRN 10/25/17 10/28/23 (Tylenol) Pain #120 tabs ibuprofen 600 mg tablet 600 mg PO TID PRN PRN Pain #90 tabs 10/25/17 10/28/23 omeprazole 20 mg capsule,delayed 20 mg PO DAILY 06/20/22 10/28/23 release fexofenadine 60 mg tablet 60 mg PO DAILY 07/06/22 10/28/23 benzonatate 100 mg capsule 100 mg PO TID #30 caps 10/27/23 10/28/23 doxycycline hyclate 100 mg tablet 100 mg PO BID #20 tabs 10/27/23 10/28/23 Previous Rx's Medication Instructions Recorded acetaminophen 325 mg tablet 650 mg (2 x 325 mg) PO Q6H PRN PRN 10/25/17 (Tylenol) Pain #120 tabs ibuprofen 600 mg tablet 600 mg PO TID PRN PRN Pain #90 tabs 10/25/17 benzonatate 100 mg capsule 100 mg PO TID #30 caps 10/27/23 doxycycline hyclate 100 mg tablet 100 mg PO BID #20 tabs 10/27/23 Allergies Allergy/AdvReac Type Severity Reaction Status Date / Time No Known Allergies Allergy Unverified 10/28/23 23:05 General Stated Complaint: RespSymp MICKEY: 3 Review of Systems All systems reviewed & are unremarkable except as noted in HPI and below PFSH All Active Problems Dehydration (Acute) Pneumonia (Acute) Left lower lobe pneumonia (Acute) Encounter for vasectomy (Acute) Varicocele (Acute) Obesity (Chronic) Sleep disturbance (Acute) Testicular pain (Acute) Groin pain (Acute) Abdominal pain (Acute) Tobacco abuse (Acute) Back pain (Acute) GERD (gastroesophageal reflux disease) (Chronic) Medical History Hand fracture, left Surgical History Hx of hernia repair Social History Smoking/Tobacco Use Status: Current every day Tobacco Type: cigarettes Smoking risk assessment performed?: Yes Alcohol Intake: current Alcohol Intake frequency: a few times a month Alcohol type: beer, wine and hard liquor Drug use: Occasionally Substance use type: marijuana Housing: house Current gender identity: male Do you feel safe at home: Yes Do you feel safe in your relationship?: Yes Exam Narrative Exam Narrative: 1.Const: Well-nourished, Well-developed, appearing stated age 2.Eyes: PERRL, no conjunctival injection, and symmetrical lids. 3.ENT: Atraumatic external nose and ears. Dry MM. Neck: Symmetric, trachea midline, No thyromegaly. 4.CVS: +S1/S2, No murmurs or gallops. Peripheral pulses 2+ and equal in all extremities. Brisk capillary refill in all extremities. 5.RESP: Unlabored respiratory effort. Clear to auscultation bilaterally. No wheezes rales or rhonchi 6.GI: Soft, Nontender/Nondistended, No hepatosplenomegaly. No guarding or rebound. 7.MSK: Normocephalic/Atraumatic, Extremities w/o deformity or ttp No cyanosis or clubbing, Normal movement of all extremities 8.Skin: Warm, Dry. No rashes or lesions. 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 Sensation grossly intact, no focal neurologic deficits. 10.Psych: (AAO) x3. Appropriate mood and affect Course Vital Signs Vital signs: Vital Signs Pulse Oximetry 95 10/28/23 22:56 Temperature 37.2 C 10/28/23 23:17 Temperature Source Oral 10/28/23 23:17 Pulse 103 H 10/28/23 23:17 Pulse 107 H 10/28/23 23:20 Respiratory Rate 30 H 10/28/23 23:20 Respiratory Effort Normal, Non-Labored 10/28/23 23:17 Respiratory Depth Normal 10/28/23 23:17 Blood Pressure 129/69 10/28/23 23:17 Blood Pressure Mean 88 10/28/23 23:16 Blood Pressure Position Sitting 10/28/23 23:17 Pulse Oximetry 95 10/28/23 23:20 Oxygen Delivery Method Room Air 10/28/23 23:17 Oxygen Flow Rate 0 10/28/23 23:05 Pain Level 8 10/28/23 23:17 Lab/Test Results Lab/Test Results: Laboratory Tests Range/Units 10/28/23 23:32 WBC (4.4-10.8) 10^3/uL 10.99 H RBC (4.36-5.78) 10^6/uL 4.64 Hgb (13.5-17.5) g/dL 14.9 Hct (40.0-50.0) % 42.7 MCV (80-95) fL 92 MCH (27.0-33.0) pg 32.1 MCHC (32.0-36.0) % 34.9 RDW (11.8-14.1) % 12.6 Plt Count (130-400) 10^3/uL 194 MPV (8.0-11.0) fL 9.4 Immature Gran % 0.3 Neutrophils % 77.1 Lymphocytes % 10.6 Monocytes % 11.7 Eosinophils % 0.0 Basophils % 0.3 Nucleated RBC % (0.0-0.3) % 0.0 Absolute Neutrophils (1.2-6.7) 10^3/uL 8.47 H Absolute Lymphocytes (1.2-3.4) 10^3/uL 1.16 L Absolute Monocytes (0.1-0.8) 10^3/uL 1.29 H Absolute Eosinophils (0.0-0.7) 10^3/uL 0.00 Absolute Basophils (0.0-0.2) 10^3/uL 0.03 D-Dimer Cancelled VBG pH (7.31-7.41) 7.44 H VBG pCO2 (41-51) mmHg 31 L VBG pO2 mmHg 42 VBG HCO3 (23-28) mmol/L 21 L VBG Total CO2 (24-29) mmol/L 19 L VBG O2 Saturation % 82 VBG Base Excess (-2-3) mmol/L -3 L VBG Lactate (0.6-1.4) mmol/L 1.0 Sodium (136-145) mmol/L 137 Potassium (3.5-5.1) mmol/L 3.6 Chloride (98-107) mmol/L 102 Carbon Dioxide (21.0-32.0) mmol/L 23.9 Anion Gap (3-11) mmol/L 11.1 H BUN (7-18) mg/dL 11 Creatinine (0.70-1.30) mg/dL 1.0 Est GFR (CKD-EPI 2020) (mL/min/1.73m2) 103.19 Glucose (74-106) mg/dL 123 H Calcium (8.5-10.1) mg/dL 8.3 L Total Bilirubin (0.2-1.0) mg/dL 0.8 AST (15-37) U/L 17 ALT (16-63) U/L 22 Alkaline Phosphatase (46-116) U/L 55 Troponin I (<or=60) ng/L < 50 Total Protein (6.4-8.2) g/dL 7.7 Albumin (3.4-5.0) g/dL 3.5
[2023-10-29 00:17] LABS: COVID-19 PCR Negative (Negative); Influenza A PCR Negative (Negative); Influenza B PCR Negative (Negative); RSV PCR Negative (Negative)
[2023-10-29 00:18] LABS: Source Nasopharynx
[2023-10-29 00:20] VITALS: PULSE 97; RESP 21; O2SAT 97
== END 2023-10-29 00:34 | disposition home or self-care (01) ==
PROVIDERS: Emergency Provider Student in an Organized Health Care Education/Training Program; PCP Nurse Practitioner Family
DX: J18.9 Pneumonia, unspecified organism (principal); E86.0 Dehydration; F17.210 Nicotine dependence, cigarettes, uncomplicated; Z11.52 Encounter for screening for COVID-19
CPT/HCPCS: 80053; 82805; 87040; 87637; 96360; 99283; 71045; 83605; 84484; 85025; 85379

== ENCOUNTER 2024-02-14 16:39 | Outpatient (REF) | payer BC, SELFPAY ==
[2024-02-14 18:47] LABS: Abs Immature Grans 0.03 10^3/uL (0.0-0.06); Absolute Basophil Count 0.05 10^3/uL (0.0-0.2); Absolute Eosinophil Count 0.24 10^3/uL (0.0-0.7); Absolute Lymphocyte Count 2.33 10^3/uL (1.2-3.4); Absolute Monocyte Count 0.74 10^3/uL (0.1-0.8); Absolute Neutrophil Count 5.72 10^3/uL (1.2-6.7); Basophils % 0.5; Eosinophils % 2.6; HCT 45.1 % (40.0-50.0); HGB 15.7 g/dL (13.5-17.5); Immature Grans % 0.3; Lymphocytes % 25.6; MCH 32.2 pg (27.0-33.0); MCHC 34.8 % (32.0-36.0); MCV 93 fL (80-95); MPV 9.8 fL (8.0-11.0); Monocytes % 8.1; Neutrophils % 62.9; Platelet Count 334 10^3/uL (130-400); RBC 4.87 10^6/uL (4.36-5.78); RDW 12.2 % (11.8-14.1); RDW-SD 42.1 fL; WBC 9.11 10^3/uL (4.4-10.8)
[2024-02-14 18:59] LABS: ALT 34 U/L (16-63); AST 21 U/L (15-37); Alkaline Phosphatase 83 U/L (46-116); Amylase 40 U/L (25-115); Anion Gap 10.1 mmol/L (3-11); BUN 11 mg/dL (7-18); Bilirubin, Total 0.7 mg/dL (0.2-1.0); CO2 24.9 mmol/L (21.0-32.0); CREATININE 0.8 mg/dL (0.70-1.30); Calcium 8.9 mg/dL (8.5-10.1); Chloride 106 mmol/L (98-107); Estimated GFR 120.59 (mL/min/1.73m2); Glucose 130 mg/dL (74-106); Lipase 27 U/L (16-77); Potassium 4.3 mmol/L (3.5-5.1); Sodium 141 mmol/L (136-145); Total Protein 8.1 g/dL (6.4-8.2)
== END 2024-02-14 16:40 | disposition home or self-care (01) ==
LOC: NCHCN 16:39
PROVIDERS: PCP Nurse Practitioner Family; Visit Provider Nurse Practitioner Family
DX: R10.9 Unspecified abdominal pain (principal)
CPT/HCPCS: 80053; 83690; 82150; 85025

== ENCOUNTER 2024-02-18 17:32 | Outpatient (REF) | payer BC, SELFPAY ==
[2024-02-18 19:30] LABS: *AMPHETAMINES SCREEN URINE Negative (Negative); *BARBITURATES SCREEN URINE Negative (Negative); *BENZODIAZEPINES SCREEN URINE Negative (Negative); Cannabinoids THC Negative (Negative); Cocaine Screen,Urine Negative (Negative); METHADONE URINE SCREEN Negative (Negative); OPIATES URINE SCREEN Negative (Negative)
[2024-02-18 19:31] LABS: Tricyclic Antidepressants Negative (Negative)
== END 2024-02-18 17:33 | disposition home or self-care (01) ==
LOC: NCHCN 17:32
PROVIDERS: PCP Nurse Practitioner Family; Visit Provider Nurse Practitioner Psychiatric/Mental Health
DX: F90.9 Attention-deficit hyperactivity disorder, unspecified type (principal)
CPT/HCPCS: 80048; 80307; 83735

== ENCOUNTER → 2024-03-17 01:08 | Outpatient (CLI) | payer BC, SELFPAY ==
--- NOTE | 2024-03-17 | ETT_ITS ---
APPROVED REPORT Exam: Exercise Treadmill Patient Location: Out-Patient Room/Bed: Stress Nurse: Joe Simons RN Ordering Provider:ANDREWS WELCH, Contact Number: [phone] BMI: 38.31 Baseline Rhythm: Sinus Rhythm Indications: Chest pain. Medical History Medical History: GERD, Obesity, Anxiety, Sleep disorder. Allergies: Chantix Cardiac Risk Factors: Smoker, obesity. Pretest Chest Pain Characteristics: No chest pain Exercise History: Indeterminate Lung Sounds: Clear to auscultation Heart Sounds: Regular Stress Test Details Test: Exercise stress testing was performed using a Boni protocol. Rest Stress HR Resting HR Supine: 86 bpm Max Heart Rate (APMHR): 188 bpm Resting HR Standin bpm Target HR (85% APMHR): 160 bpm Max HR Achieved: 162 bpm % of APMHR: 86 Recovery HR: 96 bpm HR response to stress: Normal HR response to stress BP Resting BP Supine: 130/92 mmHg Resting BP Standin/86 mmHg Max BP: 176/98 mmHg Recovery BP: 130/82 mmHg BP response to stress: Normal blood pressure response to stress. ECG Resting ECG: Sinus Rhythm Ectopy: none Stress ECG: Sinus Tachycardia ST Change: No significant ST segment changes noted Arrhythmia: None Recovery ECG: Sinus Rhythm Recovery ST Change: No significant ST segment changes noted Recovery Arrhythmia: None Clinical Reason for Termination: Fatigue, Target HR Achieved Stress Symptoms: General Fatigue Exercise duration: 8 min33 sec Highest Stage Reached: Stage 3: 3.4 mph at 14% grade. Exercise capacity: 10.16 METs Angina Score: None Silva Treadmill Score: 8.0 Rate Pressure Product: [id number] Stress ECG Conclusion 1. Resting electrocardiogram was normal 2. Patient exercised on the Boni protocol and completed a workload of 10.16 METS 3. Normal heart rate and blood pressure response to exercise. Peak heart rate achieved was 86% of ma ximal predicted for age 4. There was no electrocardiographic evidence of myocardial ischemia 5. There were no dysrhythmias Silva Treadmill Score is 8.0 which is Low risk. Stress Test Summary STAGE Time (mins) Speed (mph) Grade (%) HR BP SpO2 SYMPTOMS METS Supine 86 130/92 96 Standing 83 120/86 1 3 1.7 10 124 170/98 97 4.5 2 6 2.5 12 141 176/98 7 1 min recovery 135 170/90 96 3 min recovery 103 174/72 96 6 min recovery 96 130/82 96
== END ==
PROVIDERS: PCP Nurse Practitioner Family; Visit Provider Nurse Practitioner Family
DX: R07.9 Chest pain, unspecified (principal)
CPT/HCPCS: 93017

== ENCOUNTER 2024-04-14 20:24 | Outpatient (REF) | payer BC, SELFPAY ==
[2024-04-14 21:18] LABS: *AMPHETAMINES SCREEN URINE Negative (Negative); *BARBITURATES SCREEN URINE Negative (Negative); *BENZODIAZEPINES SCREEN URINE Negative (Negative); Cannabinoids THC Negative (Negative); Cocaine Screen,Urine Negative (Negative); METHADONE URINE SCREEN Negative (Negative); OPIATES URINE SCREEN Negative (Negative)
[2024-04-14 21:19] LABS: Tricyclic Antidepressants Negative (Negative)
[2024-04-19 06:58] LABS: Methylphenidate Negative ng/mL (Cutoff: 10); Ritalinic Acid 1452 ng/mL (Cutoff: 50)
== END 2024-04-14 20:25 | disposition home or self-care (01) ==
LOC: NCHCN 20:24
PROVIDERS: PCP Nurse Practitioner Family; Visit Provider Nurse Practitioner Psychiatric/Mental Health
DX: Z51.81 Encounter for therapeutic drug level monitoring (principal)
CPT/HCPCS: 80307; 80360

== ENCOUNTER 2024-08-28 08:11 | Emergency (ER) | payer BC, SELFPAY ==
--- NOTE | 2024-08-28 08:15 | DI.RAD_ITS ---
Exam(s) XR CHEST 2V PA LATERAL EXAM: XR CHEST 2V PA LATERAL CLINICAL HISTORY: shortness of breath TECHNIQUE: 2D digital imaging was performed. Two views. COMPARISON: CR,XR XR PORTABLE CHEST AP from 10/28/2023 FINDINGS: HEART: Normal size. Aorta: Not dilated. PULMONARY VASCULATURE: Normal. MEDIASTINUM: Unremarkable. LUNGS: Clear. PLEURAL SPACE: No pleural effusion or pneumothorax. BONE:Unremarkable for age. SOFT TISSUES: Unremarkable. IMPRESSION: No acute abnormality. DATA REPOSITORY: RADIATION DOSE DELIVERED:
[2024-08-28 08:17] VITALS: BP 131/86; PULSE 88; RESP 14; TEMP 36.9; O2SAT 96
--- OUTSIDE RECORDS SUMMARY | 2024-08-28 08:24 | XMS_ITS | Encounter Summary ---
Author Organization [facility] Address [address] [place] [address] Care Team Providers Care Newspaper Inserter Name Role Phone Unavailable Primary Care Provider Unavailabl e Encounter Details Date Type Department Care Team (Late st Contact Info) Description 09/13/2021 Lab Requisition [facility] Pathology & Laboratory Medicine - [facility] [address] [place] [address] Outr Resulting Lab, Provider Social History Tobacco Use Types Packs/Day Years Used Date Smoking Tobacco: Never Assessed Sex and Gender Information Value Date Recorded Sex Assigned at Not on file Gender Identity Not on file Sexual Orientation Not on file documented as of this encounter Plan of Treatment Not on file documented as of this encounter Procedures Procedure Name Priority Date/Time Associated Diagnosis Comments ZZCOVID-19 TEST [facility] PCR Today 09/13/2021 10:00 EST COVID-19 TESTING Routine 09/13/2021 10:0 0 EST documented in this encounter Results * COVID-19 TEST [facility] PCR (09/13/2021 10:00 EST) Swab 09/13/2021 10:0 0 EST 09/13/2021 21:28 EST Provider Outr Resulting Lab MICROBIOLOGY - GENERAL ORDERABLES [facility] [address] [place] [address] * COVID-19 TESTING (09/13/2021 10:00 EST) COVID-19 rt-PCR Result Negative Negative 09/14/2021 18:53 EST [facility] Comment: This test has not been FDA cleared or approved. This test has been authorized by FDA under an EUA for use by authorized laboratories. This test has been authorized only for detection of nucleic acid from 2019-nCoV, not for any other viruses or pathogens. This test is only authorized for the duration of the declaration that circumstances exist justifying the authorization of emergency use of in vitro diagnostic tests for detection and/or diagnosis of 2019-nCoV under section 564(b)(1) of Act, 21 U.S.C ?? 360bbb-3(b) (1), unless the authorization is terminated or revoked sooner. Negative results do not preclude 2019-nCoV infection and should not be used as the sole basis for treatment or other patient management decisions. Negative results must be combined with clinical observations, patient history, and epidemiological information. Testing was performed using the kristofer SARS-CoV-2 assay ([employer] on the Kristofer 6800 System Performing Lab [employer] [address] [facility] 09/14/2021 18:53 EST [facility] Swab 09/13/2021 10:0 0 EST 09/13/2021 21:28 EST Provider Outr Resulting Lab MICROBIOLOGY - GENERAL ORDERABLES [facility] [address] [place] [address] documented in this encounter Visit Diagnoses Not on filedocumented in this encounter
--- OUTSIDE RECORDS SUMMARY | 2024-08-28 08:24 | XMS_ITS | Referral Summary ---
Author Organization [facility] Address [address] [place] [address] Care Team Providers Care Cement Mason Name Role Phone Unavailable Primary Care Provider Unavailabl e Social History Tobacco Use Types Packs/Day Years Used Date Smoking Tobacco: Never Assessed Sex and Gender Information Value Date Recorded Sex Assigned at Not on file Gender Identity Not on file Sexual Orientation Not on file Plan of Treatment Not on file
--- OUTSIDE RECORDS SUMMARY | 2024-08-28 08:24 | XMS_ITS | Clinical Summary ---
Author Organization [facility] Address [address] [place] [address] Care Team Providers Care Rv Mechanic Name Role Phone Unavailable Primary Care Provider Unavailabl e Social History Tobacco Use Types Packs/Day Years Used Date Smoking Tobacco: Never Assessed Sex and Gender Information Value Date Recorded Sex Assigned at Not on file Gender Identity Not on file Sexual Orientation Not on file Plan of Treatment Health Maintenance Due Date Last Done Comments Hepatitis C Screen 1991 Hepatitis B Vaccine (1 of 3 - 19+ 3-dose series) 12/10 COVID-19 Vaccine ( season) 2023
--- OUTSIDE RECORDS SUMMARY | 2024-08-28 08:24 | XMS_ITS | Encounter Summary ---
Author Organization [facility] Address [address] [place] [address] Care Team Providers Care Power Plant Operators Supervisor Name Role Phone Unavailable Primary Care Provider Unavailabl e Encounter Details Date Type Department Care Team (Late st Contact Info) Description 08/25/2021 Lab Requisition [facility] Pathology & Laboratory Medicine - [facility] [address] [place] [address] Outr Resulting Lab, Provider Social History Tobacco [...] Priority Date/Time Associated Diagnosis Comments ZZCOVID-19 TEST [facility] PCR Today 08/24/2021 13:55 EDT COVID-19 TESTING Routine 08/24/2021 13:5 5 EDT documented in this encounter Results * COVID-19 TEST [facility] PCR (08/24/2021 13:55 EDT) Swab ENTIRE NASOPHARYNX / Unknown 08/24/2021 13:55 EDT 08/25/2021 17:19 EDT Provider Outr Resulting Lab MICROBIOLOGY - GENERAL ORDERABLES [facility] [address] [place] [address] * COVID-19 TESTING (08/24/2021 13:55 EDT) COVID-19 rt-PCR Result Negative Negative 08/26/2021 10:17 EDT [facility] Comment: This test has [...] was performed using the kristofer SARS-CoV-2 assay ([employer] on the Kristofer 6800 System Performing Lab [address] [facility] 08/26/2021 10:17 EDT [facility] Swab 08/24/2021 13:5 5 EDT 08/25/2021 17:19 EDT Provider Outr Resulting Lab MICROBIOLOGY - GENERAL ORDERABLES [facility] [address] [place] [address] documented in this encounter Visit Diagnoses Not on filedocumented in this encounter
[2024-08-28 08:40] VITALS: BP 131/86; PULSE 88; RESP 14; TEMP 36.9; O2SAT 96
[2024-08-28] MEDS: Albuterol HFA 8 GM 60 PUFF INH IH (08:43)
[2024-08-28] MEDS: predniSONE 20 MG TAB 40 MG PO (08:43)
[2024-08-28] MEDS: Inhaler, Assist Device 1 EACH MC (08:48)
--- NOTE | 2024-08-28 09:11 | ED.GENADUL_ITS ---
Discharge Plan Disposition Patient Disposition: Home Condition: Stable Discharge Details Clinical Impression: Bronchitis Primary Care Provider: Idalia Lamb ED Provider: Hayley Betts Home Meds and New Rx's Prescriptions: New prednisone 20 mg tablet 40 mg PO DAILY Qty: 8 0RF doxycycline hyclate 100 mg capsule 100 mg PO BID Qty: 10 0RF Continued omeprazole 20 mg capsule,delayed release(DR/EC) 20 mg PO DAILY acetaminophen [Tylenol] 325 MG tablet 650 mg PO Q6H PRN PRN (Reason: Pain) Qty: 120 2RF ibuprofen 600 MG tablet 600 mg PO TID PRN PRN (Reason: Pain) Qty: 90 2RF methylphenidate HCl 20 mg capsule,del rel,ext rel sprink 20 mg PO DAILY Discharge Instructions Instructions: Acute bronchitis Additional Instructions: Take antibiotic as prescribed, yogurt daily while on antibiotics Take prednisone as prescribed you received a dose today your next dose will be tomorrow Use the albuterol 2 puffs with spacer every 4-6 hours as needed for cough, wheeze, shortness of breath Recheck in 2 to 3 days return earlier should you have new or worsening complaints Referrals: Iadlia Lamb [Primary Care Provider] - HPI General Date/Time Provider Initiated Documentation: 08/28/24 08:12 . HPI Narrative: This 33-year-old male with history of tobacco use presents with shortness of breath, cough, subjective fever at home. He has been sick for approximately 1 week. History of pneumonia, reports this feels similarly. Denies known history of COPD. Denies any calf pain or swelling, recent flights, surgeries, long drives. Related Data Home Medications ?Medication ?Instructions ?Recorded ?Confirmed acetaminophen 325 mg tablet 650 mg (2 x 325 mg) PO Q6H PRN PRN 10/25/17 08/28/24 (Tylenol) Pain #120 tabs ibuprofen 600 mg tablet 600 mg PO TID PRN PRN Pain #90 tabs 10/25/17 08/28/24 omeprazole 20 mg capsule,delayed 20 mg PO DAILY 06/20/22 08/28/24 release doxycycline hyclate 100 mg capsule 100 mg PO BID #10 caps 08/28/24 methylphenidate HCl 20 mg 20 mg PO DAILY 08/28/24 08/28/24 capsule,delayed release,ext release sprinkle prednisone 20 mg tablet 40 mg (2 x 20 mg) PO DAILY #8 tabs 08/28/24 Previous Rx's ?Medication ?Instructions ?Recorded acetaminophen 325 mg tablet 650 mg (2 x 325 mg) PO Q6H PRN PRN 10/25/17 (Tylenol) Pain #120 tabs ibuprofen 600 mg tablet 600 mg PO TID PRN PRN Pain #90 tabs 10/25/17 doxycycline hyclate 100 mg capsule 100 mg PO BID #10 caps 08/28/24 prednisone 20 mg tablet 40 mg (2 x 20 mg) PO DAILY #8 tabs 08/28/24 Allergies Allergy/AdvReac Type Severity Reaction Status Date / Time No Known Allergies Allergy Unverified 08/28/24 08:20 General Stated Complaint: RespSymp MICKEY: 3 Exam Narrative Exam Narrative: Alert and oriented 31-year-old gentleman in no acute respiratory distress, wheezes scant scattered throughout, cardiac rate rhythm regular, speaking in complete sentences Course Vital Signs Vital signs: Vital Signs Temperature 36.9 C 08/28/24 08:17 Pulse 88 08/28/24 08:17 Respiratory Rate 14 08/28/24 08:17 Blood Pressure 131/86 08/28/24 08:17 Pulse Oximetry 96 08/28/24 08:17 Temperature 36.9 C 08/28/24 08:40 Temperature Source Oral 08/28/24 08:40 Pulse 88 08/28/24 08:40 Respiratory Rate 14 08/28/24 08:40 Respiratory Effort Short of Breath 08/28/24 08:40 Respiratory Depth Normal 08/28/24 08:40 Blood Pressure 131/86 08/28/24 08:40 Blood Pressure Position Sitting 08/28/24 08:40 Pulse Oximetry 96 08/28/24 08:40 Oxygen Delivery Method Room Air 08/28/24 08:40 Oxygen Flow Rate 0 08/28/24 08:40 Pain Level 2 08/28/24 08:40 Medical Decision Making 33-year-old male tobacco abuser with recurrent respiratory complaints presents with chief complaint of pneumonia . Chest x-ray per radiology interpretation my review does not show evidence of pneumonia. Given patient's tobacco use and likely developing COPD, I did initiate doxycycline, albuterol, and prednisone. Patient is encouraged to follow-up with PCP and to return earlier should he have new or worsening complaints Quality:SDAR Health Related Social Needs: No Data to Display PFSH All Active Problems (Updated 08/28/24 @ 09:13 by WILVER Laughlin) Bronchitis (Acute) Encounter for vasectomy (Acute) Varicocele (Acute) Obesity (Chronic) Sleep disturbance (Acute) Testicular pain (Acute) Groin pain (Acute) Abdominal pain (Acute) Tobacco abuse (Acute) Back pain (Acute) GERD (gastroesophageal reflux disease) (Chronic) Medical History Hand fracture, left Surgical History Hx of hernia repair Social History Smoking/Tobacco Use Status: Current every day Tobacco Type: cigarettes Smoking risk assessment performed?: Yes Alcohol Intake: current Alcohol Intake frequency: a few times a month Alcohol type: beer, wine and hard liquor Drug use: Occasionally Substance use type: marijuana Housing: house Current gender identity: male Do you feel safe at home: Yes Do you feel safe in your relationship?: Yes PAWSS Have you Been Recently Intoxicated or Drunk Within the Last 30 days?: No Have you Ever Experienced Previous Episodes of Alcohol Withdrawal?: No Have you ever Experienced Withdrawal Seizures?: No Have you ever Experienced Delirium Tremens(DT)s?: No Have you ever undergone Alcohol Rehabilitation Treatment (i.e, inpt ot outpatient treatment programs)?: No Have you ever Experienced Blackouts?: No Have you ever Combined Alcohol with other Downers within the last 90 days?: No Have you ever Combined Alcohol with any other Substance of Abuse during the last 90 days?: No Positive Blood Alcohol level on Presentation? [PCS.BAL]: No Evidence of Increased Autonomic Activity (i.e. HR>120, tremor, sweating, agitation, nausea)?: No Result: 0
[2024-08-28 09:21] VITALS: BP 129/83; PULSE 89; RESP 18; O2SAT 98
== END 2024-08-28 09:21 | disposition home or self-care (01) ==
PROVIDERS: Emergency Provider Physician Assistant; PCP Nurse Practitioner Family
DX: J40 Bronchitis, not specified as acute or chronic (principal); R06.02 Shortness of breath; R06.2 Wheezing; R07.9 Chest pain, unspecified; R05.1 Acute cough; F17.200 Nicotine dependence, unspecified, uncomplicated; Z87.01 Personal history of pneumonia (recurrent)
CPT/HCPCS: 99283; 71046; J7512

== ENCOUNTER 2025-04-16 12:52 | Outpatient (CLI) | payer OTHER, SELFPAY ==
--- NOTE | 2025-04-16 14:14 | DI.RAD_ITS ---
Exam(s) XR HAND RT COMPLETE XR HAND LT COMPLETE EXAM: XR HAND LT COMPLETE CLINICAL HISTORY: M79.642 Pain in LT hand. TECHNIQUE: 2D digital imaging was performed. Three views of both hands. COMPARISON: CR LEFT HAND COMPLETE from 01/07/2018 CR XR HAND RT COMPLETE from 04/16/2025 FINDINGS: BONES: No acute fracture is present. No bony destructive lesion is seen. JOINTS: No dislocation present. The joint spaces are maintained. No periarticular spurring. SOFT TISSUE: Normal. IMPRESSION: Unremarkable radiographs of both hands. DATA REPOSITORY: RADIATION DOSE DELIVERED:
== END 2025-04-16 13:12 ==
LOC: DI 12:55
PROVIDERS: PCP Nurse Practitioner Family; Visit Provider Nurse Practitioner Family
DX: M79.642 Pain in left hand (principal); M79.641 Pain in right hand
CPT/HCPCS: 73130

== ENCOUNTER 2025-10-15 18:33 | Outpatient (REF) | payer OTHER, SELFPAY | END 2025-10-15 18:34 | disposition home or self-care (01) | LOC: NCHCN 18:33 | PROVIDERS: PCP Nurse Practitioner Family; Visit Provider Nurse Practitioner Family | DX: F90.9 Attention-deficit hyperactivity disorder, unspecified type (principal) | CPT/HCPCS: 80360 ==